=== PATIENT | male | born 1995 | race Caucasian/White ===

== ENCOUNTER 2019-07-09 22:47 | Emergency (ER) | payer SELFPAY ==
[~2019-07-09] VITALS: Ht 167.6 cm; Wt 86.2 kg
[2019-07-09 22:50] VITALS: BP 122/65
--- NOTE | 2019-07-09 22:53 | NUR ---
to lobby a/w bed ambulatory
--- NOTE | 2019-07-09 23:00 | NUR ---
PT BIB SELF ACCOMPANIED BY FATHER WITH C/O N/V/D, COUGH + FEVER X 2 WEEKS. PT STATES HE HAS NOT BEEN ABLE TO KEEP FOOD DOWN X 2 WEEKS. PT STATES HE TRIED TAKING MEDICATIONS FOR COUGH AND FEVER BUT THEY WERE INEFFECTIVE. PT RESPIRATIONS ARE EVEN AND UNLABORED. SKIN IS WARM AND MOIST TO TOUCH. FATHER AT BEDSIDE. MEDHX: NONE ALLERGIES: NONE
--- NOTE | 2019-07-09 23:40 | NUR ---
DR BEATTY EVALUATING PT AT BEDSIDE
[2019-07-09] MEDS ORDERED: KETOROLAC 60 MG/2 ML VIAL IM ONE (23:45)
--- NOTE | 2019-07-10 00:10 | NUR ---
PT RESTING IN BED SITTING UP RIGHT. FATHER AT BEDSIDE. PT RESPIRATIONS ARE EVEN AND UNLABORED. SKIN IS WARM AND DRY TO TOUCH. PT PAIN LEVEL 2/10. BED IN LOWEST POSITION AND LOCKED IN PLACE.
--- NOTE | 2019-07-10 00:25 | NUR ---
PT STATES DECREASE IN PAIN. / AT THIS TIME.
--- NOTE | 2019-07-10 00:26 | NUR ---
Patient discharged with v/s stable. Written and verbal after care instructions given and explained. Patient alert, oriented and verbalized understanding of instructions. Ambulatory with steady gait. All questions addressed prior to discharge. ID band removed. Patient advised to follow up with PMD. Rx of TAMIFLU, MOTRIN, PROMETHAZINE, FLONASE given. Patient educated on indication of medication including possible reaction and side effects. Opportunity to ask questions provided and answered.
[2019-07-10 00:28] VITALS: BP 122/65
== END 2019-07-10 00:28 | disposition home or self-care (01) ==
LOC: MED 22:47
DX: J11.1 Influenza due to unidentified influenza virus with other respiratory manifestations (principal)
CPT/HCPCS: 96372; 99283; J1885